=== PATIENT | female | born 1945 | race Caucasian/White ===

== ENCOUNTER → 2018-06-18 | Outpatient (CLI) | payer MEDICARE ==
[~2018-06-18] MED LIST: IOHEXOL-350 75 ML VIAL IV ONE
== END | disposition home or self-care (01) ==
LOC: RAH 07:35
PROVIDERS: ATTEND Internal Medicine Cardiovascular Disease
DX: I65.23 Occlusion and stenosis of bilateral carotid arteries (principal); I70.90 Unspecified atherosclerosis; I73.9 Peripheral vascular disease, unspecified
CPT/HCPCS: 70496; 70498; Q9967

== ENCOUNTER → 2018-06-20 | Outpatient (CLI) | payer MEDICARE | END | disposition home or self-care (01) | LOC: SHCH 11:19 | PROVIDERS: ATTEND Internal Medicine Cardiovascular Disease | DX: I51.7 Cardiomegaly (principal) | CPT/HCPCS: 93306 ==

== ENCOUNTER → 2018-07-02 | Outpatient (CLI) | payer MEDICARE | END | disposition home or self-care (01) | LOC: SHCH 08:40 | PROVIDERS: ATTEND Internal Medicine Cardiovascular Disease | DX: I70.90 Unspecified atherosclerosis (principal); I73.9 Peripheral vascular disease, unspecified | CPT/HCPCS: 93925; 93978 ==

== ENCOUNTER → 2018-08-12 | Outpatient (CLI) | payer MEDICARE ==
[~2018-08-12] MED LIST changes: +IOHEXOL-350 50ML VIAL IV ONE
== END | disposition home or self-care (01) ==
LOC: RAH 07:36
PROVIDERS: ATTEND Internal Medicine Cardiovascular Disease
DX: I70.203 Unspecified atherosclerosis of native arteries of extremities, bilateral legs (principal); K57.30 Diverticulosis of large intestine without perforation or abscess without bleeding; N28.1 Cyst of kidney, acquired; N32.89 Other specified disorders of bladder
CPT/HCPCS: 75635; Q9967 ×2

== ENCOUNTER → 2018-12-10 | Outpatient (CLI) | payer MEDICARE ==
[~2018-12-10] MED LIST changes: +ASPI-1181 PO; +ATOR10 PO; +CALC1CAP19 PO; -IOHEXOL-350 50ML VIAL IV ONE; -IOHEXOL-350 75 ML VIAL IV ONE; +LOSA1TAB37 PO; +METF-444 PO; +METO-391 PO; +MONT10TA24 PO; +ROSU20TA31 PO; +SERT100T12 PO; +SERT50TA12 PO
== END | disposition home or self-care (01) ==
LOC: SHCH 11:23
PROVIDERS: ATTEND Internal Medicine Cardiovascular Disease
DX: I65.23 Occlusion and stenosis of bilateral carotid arteries (principal)
CPT/HCPCS: 93880

== ENCOUNTER → 2019-02-23 | Outpatient (CLI) | payer MEDICARE ==
[~2019-02-23] MED LIST changes: +IOHEXOL-350 75 ML VIAL IV ONE
== END | disposition home or self-care (01) ==
LOC: RAH 07:53
PROVIDERS: ATTEND Internal Medicine Cardiovascular Disease
DX: I65.23 Occlusion and stenosis of bilateral carotid arteries (principal); E78.5 Hyperlipidemia, unspecified
CPT/HCPCS: 70498; Q9967

== ENCOUNTER → 2020-11-01 | Outpatient (CLI) | payer MEDICARE ==
[~2020-11-01] MED LIST changes: -ASPI-1181 PO; +ASPI-1443 PO; +IOHEXOL 350 MG/ML 100ML INFUS..BTL IV ONE; +IOHEXOL-350 50ML VIAL IV ONE; -IOHEXOL-350 75 ML VIAL IV ONE; -MONT10TA24 PO; +MONT10TA32 PO; +SERT-439 PO; +SERT-440 PO; -SERT100T12 PO; -SERT50TA12 PO
== END | disposition home or self-care (01) ==
LOC: RAH 07:45
PROVIDERS: ATTEND Internal Medicine Cardiovascular Disease
DX: N28.1 Cyst of kidney, acquired (principal); K80.20 Calculus of gallbladder without cholecystitis without obstruction; K57.30 Diverticulosis of large intestine without perforation or abscess without bleeding; I70.0 Atherosclerosis of aorta; I70.293 Other atherosclerosis of native arteries of extremities, bilateral legs
CPT/HCPCS: 75635; Q9967 ×2

== ENCOUNTER → 2020-11-30 | Outpatient (CLI) | payer MEDICARE ==
[~2020-11-30] MED LIST changes: -IOHEXOL 350 MG/ML 100ML INFUS..BTL IV ONE; -IOHEXOL-350 50ML VIAL IV ONE
== END | disposition home or self-care (01) ==
LOC: SHCH 15:36
PROVIDERS: ATTEND Internal Medicine Cardiovascular Disease
DX: I65.23 Occlusion and stenosis of bilateral carotid arteries (principal)
CPT/HCPCS: 93880

== ENCOUNTER 2021-02-06 08:00 | Inpatient (IN) | payer MEDICARE ==
[~2021-02-06] VITALS: Ht 162.6 cm; Wt 94.3 kg
[2021-03-07 14:18] LABS: BASOPHILS % (AUTO) 0.6 % (0.0-5.0); EOSINOPHILS % (AUTO) 2.5 % (0.0-8.0); HEMATOCRIT 32.2 % (36-48); LYMPHOCYTES % (AUTO) 17.9 % (21.0-51.0); MEAN CORPUSCULAR HEMOGLOBIN 24.1 pg (27.0-33.0); MEAN CORPUSCULAR HGB CONC 29.5 g/dL (32.0-36.0); MEAN CORPUSCULAR VOLUME 81.5 fL (79-99); MONOCYTES % (AUTO) 9.2 % (3.0-13.0); NEUTROPHILS % (AUTO) 69.3 % (40.0-77.0); PLATELET COUNT (AUTO) 259 K/uL (130-400); RED BLOOD CELL COUNT(AUTO) 3.95 MIL/uL (4.00-5.50); RED CELL DISTRIBUTION WIDTH 18.6 % (11.0-15.5); WHITE BLOOD COUNT (AUTO) 8.1 K/uL (4.8-10.8)
[2021-03-07 14:20] LABS: APPEARANCE,URINE Cloudy (CLEAR); BILIRUBIN,URINE Negative (NEGATIVE); COLOR,URINE Yellow (YELLOW); GLUCOSE, URINE (UA) >=1000 mg/dL (NEGATIVE); KETONES,URINE Negative (NEGATIVE); LEUKOCYTE ESTERASE ,URINE Large (NEGATIVE); NITRATE,URINE Negative (NEGATIVE); OCCULT BLOOD,URINE Negative (NEGATIVE); PROTEIN,URINE Negative (NEGATIVE); UROBILINOGEN,URINE 0.2 mg/dL (0.2-1.0)
[2021-03-07 14:30] LABS: CREATININE 1.1 mg/dL (0.5-1.5)
[2021-03-07 14:33] LABS: INR 0.99 (0.85-1.15); PROTHROMBIN TIME 10.8 SEC (9.6-11.6)
[2021-03-07 14:34] LABS: PARTIAL THROMBOPLASTIN TIME 28.7 SEC (26.3-35.5)
[2021-03-07 14:58] VITALS: BP 175/75
[2021-03-07 15:17] LABS: RBC,URINE 0-1 /HPF (0-1)
[2021-03-07 15:18] LABS: BACTERIA,URINE Few /HPF (None Seen); SQUAMOUS EPITHELIAL CELL,UR Moderate /HPF (0-2); TRANSITIONAL EPI CELLS,URINE Few /HPF (None Seen)
[2021-03-08] MEDS ORDERED: EZET10TA48 PO (08:52)
[2021-03-08] MEDS ORDERED: METF-446 PO (08:52)
[2021-03-08] MEDS ORDERED: LOSA1TAB42 PO (08:52)
[2021-03-08] MEDS ORDERED: EMPA10TA PO (08:52)
[2021-03-08] MEDS ORDERED: CLOP75TA14 PO (08:52)
[2021-03-08] MEDS ORDERED: FOLI0.8T3 PO (08:52)
[2021-03-08] MEDS ORDERED: ROSU40TA21 PO (08:52)
[2021-03-08] MEDS ORDERED: VITAMIN D2 PO (08:52)
[2021-03-08] MEDS ORDERED: PANT40TA54 PO (08:52)
[2021-03-08] MEDS ORDERED: METO-409 PO (08:52)
[2021-03-08] MEDS ORDERED: ACET-2247 PO (09:11)
[2021-03-08] MEDS ORDERED: AEC81 PO (09:11)
[2021-03-08] MEDS ORDERED: 0.9%NACL 1000ML 1,000 ML IV SCH (09:30)
[2021-03-09] VITALS (28 sets, daily range): BP systolic 81–168; BP diastolic 41–105
[2021-03-09] MEDS ORDERED: IOHEXOL 350 MG/ML 100ML INFUS..BTL IV ONE (06:58)
[2021-03-09] MEDS ORDERED: NITROGLYCERIN 50MG VIAL IV ONE (06:58)
[2021-03-09] MEDS ORDERED: ATROPINE 1MG SYG IVP ONE (06:58)
[2021-03-09] MEDS ORDERED: LIDOCAINE PF 100MG/5ML (2%) SYRINGE 5ML ONE (07:02)
[2021-03-09] MEDS ORDERED: ONDANSETRON 4MG INJ ONE (07:02)
[2021-03-09] MEDS ORDERED: SUCCINYLCHOLINE 200MG/10ML SYR ONE (07:02)
[2021-03-09] MEDS ORDERED: DEXAMETHASONE SOD PHOSPHATE 10MG/ML 1ML VIAL ONE (07:02)
[2021-03-09] MEDS ORDERED: NEOSTIGMINE 5MG/5ML SYR IV ONE (07:02)
[2021-03-09] MEDS ORDERED: GLYCOPYRROLATE 1 MG/5 ML SYRINGE ONE (07:02)
[2021-03-09] MEDS ORDERED: MIDAZOLAM HCL 1 MG/ML 2ML VIAL ONE (07:02)
[2021-03-09] MEDS ORDERED: PROPOFOL 10 MG/ML 20ML VIAL IV ONE (07:02)
[2021-03-09] MEDS ORDERED: ROCURONIUM 10MG/1ML SYR 10 MG/ML ML ONE (07:02)
[2021-03-09] MEDS ORDERED: FENTANYL CITRATE PF 50 MCG/1 ML 2ML VIAL ONE ×2 (07:03→09:10)
[2021-03-09] MEDS ORDERED: CEFAZOLIN SODIUM 1 GM VIAL ONE ×2 (07:10→07:50)
[2021-03-09] MEDS ORDERED: ASPIRIN 325MG EC TAB PO ONE (07:21)
[2021-03-09] MEDS ORDERED: CLOPIDOGREL 300MG TAB ONE (07:22)
[2021-03-09] MEDS ORDERED: FAMOTIDINE 20MG VIAL IV ONE (07:22)
[2021-03-09] MEDS ORDERED: PHENYLEPHRINE HCL 10 MG/ML 1ML VIAL IV ONE (07:38)
[2021-03-09] MEDS ORDERED: EPINEPHRINE PF 1MG AMP ONE (07:45)
[2021-03-09] MEDS ORDERED: HEPARIN 10,000 UNIT/10ML (1,000 UNIT/ML) VIAL ONE (08:06)
[2021-03-09] MEDS ORDERED: ERGOCALCIFEROL (VITAMIN D2) 50,000 UNIT CAPSULE PO SCH (09:00)
[2021-03-09] MEDS: PANTOPRAZOLE 40 MG TAB DR PO SCH (09:00)
[2021-03-09] MEDS ORDERED: LIDOCAINE HCL MPF 1% 5ML VIAL ONE (09:10)
[2021-03-09] MEDS ORDERED: DEXTROSE 50%-WATER 50 ML DISP.SYRIN IV PRN (09:30)
[2021-03-09] MEDS ORDERED: PHARMACY COMMUNICATION MISC SCH (09:30)
[2021-03-09] MEDS ORDERED: NOREPINEPHRIN 4MG/NS 250ML 250 ML IV PRN (09:30)
[2021-03-09] MEDS ORDERED: NITROGLYCERIN 50MG/D5W 250ML 1 BOT IV PRN (09:30)
[2021-03-09] MEDS ORDERED: 0.9%NACL 1000ML 1,000 ML IV SCH (09:30)
[2021-03-09] MEDS: INSULIN HUMULIN R 100 UNIT/ML 3ML SQ SCH ×3 (11:30→21:00)
[2021-03-09] MEDS ORDERED: CEFAZOLIN SODIUM 1 GM VIAL IVP SCH (14:00)
[2021-03-09] MEDS ORDERED: ONDANSETRON 4MG INJ IVP PRN (15:00)
[2021-03-09] MEDS ORDERED: ACETAMINOPHEN 325 MG TAB PO PRN (15:00)
[2021-03-09] MEDS ORDERED: MORPHINE 2 MG SYG IVP PRN (15:30)
[2021-03-09] MEDS ORDERED: EZETIMIBE 10 MG TAB PO SCH (21:00)
[2021-03-09] MEDS ORDERED: ASPIRIN 81 MG EC TAB PO SCH (21:00)
[2021-03-09] MEDS ORDERED: ACETAMINOPHEN 325 MG TAB PO SCH (21:00)
[2021-03-09] MEDS ORDERED: LOSARTAN 100 MG TABLET PO SCH (21:00)
[2021-03-09] MEDS ORDERED: HYDROCHLOROTHIAZIDE 25 MG TABLET PO SCH (21:00)
[2021-03-09] MEDS ORDERED: ATORVASTATIN 40 MG TABLET PO SCH (21:00)
[2021-03-09] MEDS ORDERED: FOLIC ACID 1 MG TABLET PO SCH (21:00)
[2021-03-09] MEDS ORDERED: **HM**JARDIANCE 10MG PO SCH (21:00)
[2021-03-09] MEDS ORDERED: METOPROLOL SUCCINATE 50 MG TAB.SR.24H PO SCH (21:00)
[2021-03-09] MEDS ORDERED: CLOPIDOGREL 75MG TAB PO SCH (21:00)
[2021-03-10] VITALS (13 sets, daily range): BP systolic 128–188; BP diastolic 39–88
[2021-03-10 05:38] LABS: BASOPHILS % (AUTO) 0.1 % (0.0-5.0); HEMATOCRIT 25.3 % (36-48); LYMPHOCYTES % (AUTO) 9.5 % (21.0-51.0); MEAN CORPUSCULAR HEMOGLOBIN 24.2 pg (27.0-33.0); MEAN CORPUSCULAR VOLUME 80.6 fL (79-99); MONOCYTES % (AUTO) 10.5 % (3.0-13.0); NEUTROPHILS % (AUTO) 79.4 % (40.0-77.0); PLATELET COUNT (AUTO) 225 K/uL (130-400); RED BLOOD CELL COUNT(AUTO) 3.14 MIL/uL (4.00-5.50); RED CELL DISTRIBUTION WIDTH 18.9 % (11.0-15.5); WHITE BLOOD COUNT (AUTO) 9.8 K/uL (4.8-10.8)
[2021-03-10 06:00] LABS: ALBUMIN 3.2 g/dL (3.5-5.0); BILIRUBIN,TOTAL 0.1 mg/dL (0.2-1.0); CREATININE 1.1 mg/dL (0.5-1.5); POTASSIUM 3.8 mmol/L (3.5-5.1); TOTAL PROTEIN, SERUM 6.8 g/dL (6.0-8.3)
[2021-03-10] MEDS: INSULIN HUMULIN R 100 UNIT/ML 3ML SQ SCH ×3 (06:53→16:30)
[2021-03-10] MEDS ORDERED: FERROUS SULFATE 325 MG TABLET.DR ONE (08:16)
[2021-03-10] MEDS: PANTOPRAZOLE 40 MG TAB DR PO SCH (08:55)
[2021-03-10] MEDS: FERROUS SULFATE 325 MG TABLET.DR PO SCH ×3 (08:56→17:00)
[2021-03-10 17:06] LABS: HEMATOCRIT 32.8 % (36-48)
[2021-03-10] MEDS ORDERED: FERR324T4 PO (17:41)
== END 2021-03-10 18:56 | disposition home or self-care (01) | DRG 27 ==
LOC: DAHIP 03-09 05:38 → 2CH 03-09 09:47 → EDSTATUS 03-09 12:00 → 2DH 03-10 12:43
PROVIDERS: ADMIT Hospitalist; ATTEND Hospitalist
PROC: 03CK3ZZ Extirpation of Matter from Right Internal Carotid Artery, Percutaneous Approach (ICD-10-PCS; 2021-03-09)
PROC: B3131ZZ Fluoroscopy of Right Common Carotid Artery using Low Osmolar Contrast (ICD-10-PCS; 2021-03-09)
PROC: 037H3DZ Dilation of Right Common Carotid Artery with Intraluminal Device, Percutaneous Approach (ICD-10-PCS; principal; 2021-03-09 07:00)
PROC: 30233N1 Transfusion of Nonautologous Red Blood Cells into Peripheral Vein, Percutaneous Approach (ICD-10-PCS; 2021-03-10)
DX: I65.21 Occlusion and stenosis of right carotid artery (principal); Z68.35 Body mass index [BMI] 35.0-35.9, adult; E66.9 Obesity, unspecified; E78.5 Hyperlipidemia, unspecified; E11.51 Type 2 diabetes mellitus with diabetic peripheral angiopathy without gangrene; D64.9 Anemia, unspecified; I10 Essential (primary) hypertension; Z20.822 Contact with and (suspected) exposure to COVID-19; F41.9 Anxiety disorder, unspecified; E78.00 Pure hypercholesterolemia, unspecified; Z90.710 Acquired absence of both cervix and uterus; Z79.82 Long term (current) use of aspirin; Z79.02 Long term (current) use of antithrombotics/antiplatelets; Z79.899 Other long term (current) drug therapy; Z87.891 Personal history of nicotine dependence; Z82.3 Family history of stroke; Z82.5 Family history of asthma and other chronic lower respiratory diseases; Z82.0 Family history of epilepsy and other diseases of the nervous system; Z82.49 Family history of ischemic heart disease and other diseases of the circulatory system; Z80.6 Family history of leukemia; Z80.8 Family history of malignant neoplasm of other organs or systems
CPT/HCPCS: 36415; 36430; 37215; 71045; 80048; 80053; 80061; 81001; 82948; 85014; 85018; 85025; 85347; 85610; 85730; 86850; 86900; 86901; 86923; 87088; 87635; 93005; A4344; A4606; C1725; C1769; C1894; G0378; J0171; J0330; J0461; J0690; J1100; J1644; J2001; J2250; J2370; J2405; J2704; J2710; J3010; J3490; J7040; P9016; Q9967

== ENCOUNTER → 2021-04-06 | Outpatient (CLI) | payer MEDICARE ==
[~2021-04-06] MED LIST changes: +ACET-2247 PO; +AEC81 PO; -ASPI-1443 PO; -ATOR10 PO; -CALC1CAP19 PO; +CLOP75TA14 PO; +EMPA10TA PO; +EZET10TA48 PO; +FERR324T4 PO; +FOLI0.8T3 PO; +GADOTERATE MEGLUMINE 10 MMOL/20 ML VIAL IV ONE; -LOSA1TAB37 PO; +LOSA1TAB42 PO; -METF-444 PO; +METF-446 PO; -METO-391 PO; +METO-409 PO; -MONT10TA32 PO; +PANT40TA54 PO; -ROSU20TA31 PO; +ROSU40TA21 PO; -SERT-439 PO; -SERT-440 PO; +VITAMIN D2 PO
== END | disposition home or self-care (01) ==
LOC: RAH 08:20
PROVIDERS: ATTEND Internal Medicine Cardiovascular Disease
DX: M47.816 Spondylosis without myelopathy or radiculopathy, lumbar region (principal); M48.061 Spinal stenosis, lumbar region without neurogenic claudication; M51.26 Other intervertebral disc displacement, lumbar region; N28.1 Cyst of kidney, acquired
CPT/HCPCS: 72158; A9575

== ENCOUNTER → 2021-05-10 | Outpatient (CLI) | payer MEDICARE ==
[~2021-05-10] MED LIST changes: +ALBUTEROL 0.083% 2.5 MG/3 ML INH IH ONE; -GADOTERATE MEGLUMINE 10 MMOL/20 ML VIAL IV ONE
== END | disposition home or self-care (01) ==
LOC: RESP 08:44
PROVIDERS: ATTEND Internal Medicine Critical Care Medicine
DX: J44.9 Chronic obstructive pulmonary disease, unspecified (principal)
CPT/HCPCS: 94060; 94727; 94729

== ENCOUNTER 2021-07-20 17:55 | Inpatient (IN) | payer MEDICARE ==
[~2021-07-20] VITALS: Ht 162.6 cm; Wt 86.0 kg
[~2021-07-20 17:55] MED LIST changes: -AEC81 PO; -ALBUTEROL 0.083% 2.5 MG/3 ML INH IH ONE; +DIAZ2TAB3 PO; +DULO60CA64 PO; +FERR1TAB66 PO; +FOLI0.8C PO; -FOLI0.8T3 PO; -LOSA1TAB42 PO; +METF-444 PO; -METF-446 PO; -METO-409 PO; +MONT-39 PO; +PIND5 PO
[2021-07-20 18:24] LABS: BASOPHILS % (AUTO) 0.2 % (0.0-5.0); EOSINOPHILS % (AUTO) 0.2 % (0.0-8.0); MEAN CORPUSCULAR HEMOGLOBIN 26.8 pg (27.0-33.0); MEAN CORPUSCULAR HGB CONC 29.8 g/dL (32.0-36.0); MEAN CORPUSCULAR VOLUME 89.8 fL (79-99); MONOCYTES % (AUTO) 7.1 % (3.0-13.0); NEUTROPHILS % (AUTO) 78.4 % (40.0-77.0); PLATELET COUNT (AUTO) 304 K/uL (130-400); RED BLOOD CELL COUNT(AUTO) 1.57 MIL/uL (4.00-5.50); RED CELL DISTRIBUTION WIDTH 16.2 % (11.0-15.5); WHITE BLOOD COUNT (AUTO) 12.3 K/uL (4.8-10.8)
[2021-07-20 18:37] LABS: CREATININE 0.8 mg/dL (0.5-1.5); POTASSIUM 3.3 mmol/L (3.5-5.1)
[2021-07-20 18:38] LABS: HEMATOCRIT 14.1 % (36-48)
[2021-07-20 18:46] LABS: ALBUMIN 2.5 g/dL (3.5-5.0); BILIRUBIN,TOTAL 0.2 mg/dL (0.2-1.0); TOTAL PROTEIN, SERUM 5.6 g/dL (6.0-8.3)
[2021-07-20] MEDS ORDERED: 0.9%NACL 1000ML 1,000 ML IV SCH ×2 (19:00→19:30)
[2021-07-20 19:16] LABS: INR 1.04 (0.85-1.15); PROTHROMBIN TIME 11.3 SEC (9.6-11.6)
[2021-07-20 19:17] LABS: PARTIAL THROMBOPLASTIN TIME 26.2 SEC (26.3-35.5)
[2021-07-20] MEDS ORDERED: POTASSIUM BICARB/CIT AC 25 MEQ TABLET.EFF PO ONE (19:30)
[2021-07-20] MEDS ORDERED: ONDANSETRON 4MG INJ IV PRN (19:30)
[2021-07-20] MEDS ORDERED: ACETAMINOPHEN 325 MG TAB PO PRN ×2 (19:30)
[2021-07-20 20:22] LABS: HEMOGLOBIN A1C 5.6 % (4.0-6.0)
[2021-07-20] MEDS: FAMOTIDINE 20MG TAB PO SCH (20:49)
[2021-07-20] MEDS: INSULIN HUMULIN R 100 UNIT/ML 3ML SQ SCH (21:00)
[2021-07-20 21:26] VITALS: BP 152/52
[2021-07-21] VITALS (7 sets, daily range): BP systolic 130–188; BP diastolic 48–78
[2021-07-21 02:17] LABS: BASOPHILS % (AUTO) 0.5 % (0.0-5.0); EOSINOPHILS % (AUTO) 0.2 % (0.0-8.0); LYMPHOCYTES % (AUTO) 19.5 % (21.0-51.0); MEAN CORPUSCULAR HEMOGLOBIN 27.6 pg (27.0-33.0); MEAN CORPUSCULAR HGB CONC 31.3 g/dL (32.0-36.0); MEAN CORPUSCULAR VOLUME 88.2 fL (79-99); MONOCYTES % (AUTO) 11.2 % (3.0-13.0); NEUTROPHILS % (AUTO) 67.3 % (40.0-77.0); NUCLEATED RED BLOOD CELLS 0.2 % (0.0-0.19); PLATELET COUNT (AUTO) 238 K/uL (130-400); RED BLOOD CELL COUNT(AUTO) 2.21 MIL/uL (4.00-5.50); RED CELL DISTRIBUTION WIDTH 15.4 % (11.0-15.5); WHITE BLOOD COUNT (AUTO) 9.5 K/uL (4.8-10.8)
[2021-07-21 02:21] LABS: HEMATOCRIT 19.5 % (36-48)
[2021-07-21 02:30] LABS: ALBUMIN 2.4 g/dL (3.5-5.0); BILIRUBIN,TOTAL 0.2 mg/dL (0.2-1.0); CREATININE 0.7 mg/dL (0.5-1.5); POTASSIUM 3.2 mmol/L (3.5-5.1); TOTAL PROTEIN, SERUM 5.1 g/dL (6.0-8.3)
[2021-07-21 03:27] LABS: ERYTHROCYTE SEDIMENTATION RATE 22 MM/HR (0-30)
[2021-07-21 03:49] LABS: APPEARANCE,URINE Clear (CLEAR); BILIRUBIN,URINE Negative (NEGATIVE); COLOR,URINE Yellow (YELLOW); GLUCOSE, URINE (UA) Negative (NEGATIVE); KETONES,URINE Trace mg/dL (NEGATIVE); LEUKOCYTE ESTERASE ,URINE Small (NEGATIVE); NITRATE,URINE Negative (NEGATIVE); OCCULT BLOOD,URINE Negative (NEGATIVE); PROTEIN,URINE Negative (NEGATIVE); UROBILINOGEN,URINE 0.2 mg/dL (0.2-1.0)
[2021-07-21 04:01] LABS: BACTERIA,URINE None Seen /HPF (None Seen); RBC,URINE 0-1 /HPF (0-1); SQUAMOUS EPITHELIAL CELL,UR Few /HPF (0-2)
[2021-07-21 05:03] LABS: HEPATITIS A IGM ANTIBODY Non-Reactive (Negative); HEPATITIS B CORE IGM ANTIBODY Non-Reactive (Negative); HEPATITIS C ANTIBODY Non-Reactive (NEGATIVE)
[2021-07-21 05:04] LABS: HEPATITIS B SURFACE ANTIGEN Non-Reactive (Negative)
[2021-07-21 06:49] LABS: HEMATOCRIT 18.9 % (36-48)
[2021-07-21] MEDS: INSULIN HUMULIN R 100 UNIT/ML 3ML SQ SCH ×4 (06:52→20:50)
[2021-07-21] MEDS: CEFTRIAXONE 1G VIAL IVP SCH ×2 (07:16→18:29)
[2021-07-21] MEDS: FAMOTIDINE 20MG TAB PO SCH ×2 (08:11→21:30)
[2021-07-21] MEDS ORDERED: FOLI0.8T3 PO (11:13)
[2021-07-21] MEDS ORDERED: FERR159T2 PO (11:13)
[2021-07-21 12:04] LABS: HEMATOCRIT 19.3 % (36-48)
[2021-07-21] MEDS: KCL 20 MEQ ERTAB PO PRN (12:24)
[2021-07-21] MEDS ORDERED: IOHEXOL-350 75 ML VIAL IV ONE (17:31)
[2021-07-21 19:25] LABS: HEMATOCRIT 23.7 % (36-48)
[2021-07-21] MEDS ORDERED: LACTULOSE 20 GM/30 ML UDCUP PO SCH (21:00)
[2021-07-22] VITALS (18 sets, daily range): BP systolic 123–191; BP diastolic 60–85
[2021-07-22 04:00] LABS: BASOPHILS % (AUTO) 0.5 % (0.0-5.0); HEMATOCRIT 23.9 % (36-48); MEAN CORPUSCULAR HEMOGLOBIN 27.4 pg (27.0-33.0); MEAN CORPUSCULAR HGB CONC 31.4 g/dL (32.0-36.0); MEAN CORPUSCULAR VOLUME 87.2 fL (79-99); MONOCYTES % (AUTO) 9.7 % (3.0-13.0); NEUTROPHILS % (AUTO) 69.7 % (40.0-77.0); PLATELET COUNT (AUTO) 260 K/uL (130-400); RED BLOOD CELL COUNT(AUTO) 2.74 MIL/uL (4.00-5.50); RED CELL DISTRIBUTION WIDTH 15.9 % (11.0-15.5); WHITE BLOOD COUNT (AUTO) 7.6 K/uL (4.8-10.8)
[2021-07-22 04:22] LABS: CREATININE 0.7 mg/dL (0.5-1.5); MAGNESIUM 1.8 mg/dL (1.80-2.40); PHOSPHORUS 3.4 mg/dL (2.5-4.9); POTASSIUM 3.1 mmol/L (3.5-5.1)
[2021-07-22] MEDS: INSULIN HUMULIN R 100 UNIT/ML 3ML SQ SCH ×4 (06:38→20:50)
[2021-07-22] MEDS: CEFTRIAXONE 1G VIAL IVP SCH ×2 (06:38→18:12)
[2021-07-22] MEDS: LIDOCAINE HCL-MPF 1% 2ML VIAL IV PRN (06:38)
[2021-07-22] MEDS: POTASSIUM CHLORIDE 20MEQ/100ML 100 ML IV PRN (06:39)
[2021-07-22] MEDS: FAMOTIDINE 20MG TAB PO SCH (08:49)
[2021-07-22] MEDS: LABETALOL 20MG VIAL IV PRN ×3 (08:54→22:17)
[2021-07-22] MEDS ORDERED: IRON SUCROSE COMPLEX 100 MG in 0.9%NACL 50ML 50 ML IV SCH (09:00)
[2021-07-22] MEDS: IRON SUCROSE COMPLEX 100 MG/5 ML VIAL IVP SCH (09:06)
[2021-07-22] MEDS ORDERED: LIDOCAINE PF 100MG/5ML (2%) SYRINGE 5ML ONE (14:03)
[2021-07-22] MEDS ORDERED: PROPOFOL 10 MG/ML 20ML VIAL IV ONE (14:03)
[2021-07-22] MEDS ORDERED: LACTULOSE 20 GM/30 ML UDCUP PR SCH (15:00)
[2021-07-22] MEDS: KCL 20 MEQ ERTAB PO PRN (15:59)
[2021-07-22] MEDS ORDERED: LACTULOSE 20 GM/30 ML UDCUP PO SCH (16:00)
[2021-07-22] MEDS ORDERED: LACTULOSE 20 GM/30 ML UDCUP PO ONE (16:30)
[2021-07-22] MEDS ORDERED: MAGNESIUM CITRATE 296 ML SOLUTION PO ONE (17:00)
[2021-07-22] MEDS ORDERED: PEG 3350/NA SULF,BICARB,CL/KCL 4000 ML SOLN PO SCH (17:30)
[2021-07-22] MEDS ORDERED: MAGNESIUM 2GM PREMIX 50ML 50 ML IV SCH (18:00)
[2021-07-22] MEDS ORDERED: HYDROMORPHONE 0.5 MG SYG (0.5MG/0.5ML) IVP PRN ×2 (18:30)
[2021-07-22] MEDS: BISACODYL 5 MG TABLET.DR PO SCH (20:35)
[2021-07-22] MEDS: PANTOPRAZOLE 40 MG/VIAL IVP SCH (20:35)
[2021-07-23] VITALS (10 sets, daily range): BP systolic 105–177; BP diastolic 32–91
[2021-07-23 05:14] LABS: BASOPHILS % (AUTO) 0.4 % (0.0-5.0); EOSINOPHILS % (AUTO) 1.2 % (0.0-8.0); HEMATOCRIT 30.5 % (36-48); LYMPHOCYTES % (AUTO) 15.2 % (21.0-51.0); MEAN CORPUSCULAR HEMOGLOBIN 27.7 pg (27.0-33.0); MEAN CORPUSCULAR HGB CONC 31.5 g/dL (32.0-36.0); MEAN CORPUSCULAR VOLUME 88.2 fL (79-99); MONOCYTES % (AUTO) 9.3 % (3.0-13.0); NEUTROPHILS % (AUTO) 73.1 % (40.0-77.0); PLATELET COUNT (AUTO) 304 K/uL (130-400); RED BLOOD CELL COUNT(AUTO) 3.46 MIL/uL (4.00-5.50); RED CELL DISTRIBUTION WIDTH 15.9 % (11.0-15.5); WHITE BLOOD COUNT (AUTO) 8.5 K/uL (4.8-10.8)
[2021-07-23 05:24] LABS: CREATININE 0.7 mg/dL (0.5-1.5); MAGNESIUM 2.2 mg/dL (1.80-2.40)
[2021-07-23 05:33] LABS: POTASSIUM 2.7 mmol/L (3.5-5.1)
[2021-07-23] MEDS: INSULIN HUMULIN R 100 UNIT/ML 3ML SQ SCH ×4 (05:36→20:44)
[2021-07-23] MEDS: LABETALOL 20MG VIAL IV PRN ×2 (05:36→20:56)
[2021-07-23] MEDS: CEFTRIAXONE 1G VIAL IVP SCH ×2 (05:37→19:19)
[2021-07-23] MEDS: LIDOCAINE HCL-MPF 1% 2ML VIAL IV PRN (07:14)
[2021-07-23] MEDS: POTASSIUM CHLORIDE 20MEQ/100ML 100 ML IV PRN (07:14)
[2021-07-23] MEDS: PANTOPRAZOLE 40 MG/VIAL IVP SCH ×2 (09:01→20:46)
[2021-07-23] MEDS: IRON SUCROSE COMPLEX 100 MG/5 ML VIAL IVP SCH (09:01)
[2021-07-23] MEDS: BISACODYL 5 MG TABLET.DR PO SCH ×2 (09:02→20:46)
[2021-07-23] MEDS ORDERED: PROPOFOL 10 MG/ML 20ML VIAL IV ONE (11:10)
[2021-07-23] MEDS ORDERED: LIDOCAINE PF 100MG/5ML (2%) SYRINGE 5ML ONE (11:11)
[2021-07-23] MEDS ORDERED: PEG 3350/NA SULF,BICARB,CL/KCL 4000 ML SOLN PO SCH (16:00)
[2021-07-23] MEDS ORDERED: MAGNESIUM CITRATE 296 ML SOLUTION PO SCH (16:00)
[2021-07-23] MEDS ORDERED: LACTULOSE 20 GM/30 ML UDCUP PR SCH (16:00)
[2021-07-23] MEDS: KCL 20 MEQ ERTAB PO PRN (16:39)
[2021-07-24] VITALS (19 sets, daily range): BP systolic 122–199; BP diastolic 53–89
[2021-07-24 05:01] LABS: BASOPHILS % (AUTO) 0.4 % (0.0-5.0); HEMATOCRIT 26.8 % (36-48); LYMPHOCYTES % (AUTO) 18.3 % (21.0-51.0); MEAN CORPUSCULAR HEMOGLOBIN 27.5 pg (27.0-33.0); MEAN CORPUSCULAR HGB CONC 31.3 g/dL (32.0-36.0); MEAN CORPUSCULAR VOLUME 87.6 fL (79-99); MONOCYTES % (AUTO) 12.4 % (3.0-13.0); NEUTROPHILS % (AUTO) 66.2 % (40.0-77.0); PLATELET COUNT (AUTO) 272 K/uL (130-400); RED BLOOD CELL COUNT(AUTO) 3.06 MIL/uL (4.00-5.50); RED CELL DISTRIBUTION WIDTH 15.9 % (11.0-15.5)
[2021-07-24 05:14] LABS: CREATININE 0.5 mg/dL (0.5-1.5)
[2021-07-24 05:20] LABS: POTASSIUM 2.8 mmol/L (3.5-5.1)
[2021-07-24] MEDS ORDERED: KCL 20 MEQ ERTAB PO ONE ×2 (06:00)
[2021-07-24] MEDS: KCL 20 MEQ ERTAB PO PRN ×2 (06:03→22:48)
[2021-07-24] MEDS: INSULIN HUMULIN R 100 UNIT/ML 3ML SQ SCH ×4 (06:08→20:13)
[2021-07-24] MEDS: BISACODYL 5 MG TABLET.DR PO SCH ×3 (08:35→20:31)
[2021-07-24] MEDS: CEFTRIAXONE 1G VIAL IVP SCH ×2 (08:58→18:47)
[2021-07-24] MEDS: PANTOPRAZOLE 40 MG/VIAL IVP SCH ×2 (08:58→20:27)
[2021-07-24] MEDS: IRON SUCROSE COMPLEX 100 MG/5 ML VIAL IVP SCH (08:59)
[2021-07-24] MEDS: LIDOCAINE HCL-MPF 1% 2ML VIAL IV PRN (10:53)
[2021-07-24] MEDS: POTASSIUM CHLORIDE 20MEQ/100ML 100 ML IV PRN (10:54)
[2021-07-24] MEDS ORDERED: PROPOFOL 10 MG/ML 20ML VIAL IV ONE ×5 (12:44→14:06)
[2021-07-24] MEDS ORDERED: FENTANYL CITRATE PF 50 MCG/1 ML 2ML VIAL ONE (13:06)
[2021-07-24] MEDS ORDERED: PHENYLEPHRINE HCL 10 MG/ML 1ML VIAL IV ONE (13:31)
[2021-07-25] VITALS (8 sets, daily range): BP systolic 92–199; BP diastolic 51–88
[2021-07-25 05:04] LABS: BASOPHILS % (AUTO) 0.4 % (0.0-5.0); EOSINOPHILS % (AUTO) 1.8 % (0.0-8.0); HEMATOCRIT 28.4 % (36-48); LYMPHOCYTES % (AUTO) 16.1 % (21.0-51.0); MEAN CORPUSCULAR HEMOGLOBIN 28.2 pg (27.0-33.0); MEAN CORPUSCULAR HGB CONC 31.3 g/dL (32.0-36.0); MEAN CORPUSCULAR VOLUME 89.9 fL (79-99); MONOCYTES % (AUTO) 10.8 % (3.0-13.0); NEUTROPHILS % (AUTO) 70.4 % (40.0-77.0); PLATELET COUNT (AUTO) 285 K/uL (130-400); RED BLOOD CELL COUNT(AUTO) 3.16 MIL/uL (4.00-5.50); WHITE BLOOD COUNT (AUTO) 8.2 K/uL (4.8-10.8)
[2021-07-25 05:22] LABS: ALBUMIN 2.5 g/dL (3.5-5.0); BILIRUBIN,TOTAL 0.3 mg/dL (0.2-1.0); CREATININE 0.6 mg/dL (0.5-1.5); TOTAL PROTEIN, SERUM 5.6 g/dL (6.0-8.3)
[2021-07-25 05:25] LABS: POTASSIUM 2.9 mmol/L (3.5-5.1)
[2021-07-25] MEDS: POTASSIUM CHLORIDE 20MEQ/100ML 100 ML IV PRN (05:33)
[2021-07-25] MEDS: LIDOCAINE HCL-MPF 1% 2ML VIAL IV PRN (05:34)
[2021-07-25] MEDS: CEFTRIAXONE 1G VIAL IVP SCH ×2 (05:53→19:07)
[2021-07-25] MEDS: INSULIN HUMULIN R 100 UNIT/ML 3ML SQ SCH ×4 (06:27→20:06)
[2021-07-25] MEDS: BISACODYL 5 MG TABLET.DR PO SCH ×2 (09:00→21:00)
[2021-07-25] MEDS: IRON SUCROSE COMPLEX 100 MG/5 ML VIAL IVP SCH (09:45)
[2021-07-25] MEDS: PANTOPRAZOLE 40 MG/VIAL IVP SCH (09:45)
[2021-07-26 04:24] VITALS: BP 154/73
[2021-07-26 04:48] LABS: BASOPHILS % (AUTO) 0.3 % (0.0-5.0); EOSINOPHILS % (AUTO) 3.3 % (0.0-8.0); HEMATOCRIT 28.2 % (36-48); LYMPHOCYTES % (AUTO) 15.7 % (21.0-51.0); MEAN CORPUSCULAR HEMOGLOBIN 27.1 pg (27.0-33.0); MEAN CORPUSCULAR HGB CONC 30.1 g/dL (32.0-36.0); MEAN CORPUSCULAR VOLUME 89.8 fL (79-99); MONOCYTES % (AUTO) 9.3 % (3.0-13.0); NEUTROPHILS % (AUTO) 70.7 % (40.0-77.0); PLATELET COUNT (AUTO) 274 K/uL (130-400); RED BLOOD CELL COUNT(AUTO) 3.14 MIL/uL (4.00-5.50); RED CELL DISTRIBUTION WIDTH 16.1 % (11.0-15.5); WHITE BLOOD COUNT (AUTO) 7.5 K/uL (4.8-10.8)
[2021-07-26 05:34] LABS: ALBUMIN 2.4 g/dL (3.5-5.0); BILIRUBIN,TOTAL 0.3 mg/dL (0.2-1.0); CREATININE 0.6 mg/dL (0.5-1.5); TOTAL PROTEIN, SERUM 5.4 g/dL (6.0-8.3)
[2021-07-26 05:42] LABS: POTASSIUM 2.8 mmol/L (3.5-5.1)
[2021-07-26] MEDS: CEFTRIAXONE 1G VIAL IVP SCH (05:42)
[2021-07-26] MEDS: POTASSIUM CHLORIDE 10% ELIXIR 20 MEQ/15 ML UDCUP PO PRN ×3 (05:50→14:08)
[2021-07-26] MEDS: INSULIN HUMULIN R 100 UNIT/ML 3ML SQ SCH ×3 (05:51→16:30)
[2021-07-26 08:00] VITALS: BP 172/73
[2021-07-26] MEDS ORDERED: PANTOPRAZOLE 40 MG TAB DR PO SCH (09:00)
[2021-07-26] MEDS: BISACODYL 5 MG TABLET.DR PO SCH (09:00)
[2021-07-26] MEDS: IRON SUCROSE COMPLEX 100 MG/5 ML VIAL IVP SCH (09:18)
[2021-07-26] MEDS: KCL 20 MEQ ERTAB PO PRN (09:20)
[2021-07-26] MEDS ORDERED: OMEP20TA20 PO (09:27)
[2021-07-26] MEDS: LIDOCAINE HCL-MPF 1% 2ML VIAL IV PRN (09:32)
[2021-07-26] MEDS: POTASSIUM CHLORIDE 20MEQ/100ML 100 ML IV PRN (09:32)
[2021-07-26 12:00] VITALS: BP_SYST 156; BP_SYST 162; BP_DIAS 65; BP_DIAS 75
[2021-07-26 16:00] VITALS: BP 156/75
== END 2021-07-26 17:45 | disposition home or self-care (01) | DRG 378 ==
LOC: EDH 17:55 → EDHIP 19:06 → UNDOADMOB 19:06 → EDHIP 19:12 → OBSVTOIN 19:12 → 3CH 21:07
PROVIDERS: ADMIT Internal Medicine; ATTEND Internal Medicine
PROC: 30233N1 Transfusion of Nonautologous Red Blood Cells into Peripheral Vein, Percutaneous Approach (ICD-10-PCS; 2021-07-20)
PROC: 30233N1 Transfusion of Nonautologous Red Blood Cells into Peripheral Vein, Percutaneous Approach (ICD-10-PCS; 2021-07-21)
PROC: 0DB58ZX Excision of Esophagus, Via Natural or Artificial Opening Endoscopic, Diagnostic (ICD-10-PCS; principal; 2021-07-22)
PROC: 0DB68ZX Excision of Stomach, Via Natural or Artificial Opening Endoscopic, Diagnostic (ICD-10-PCS; 2021-07-22)
PROC: 0DJD8ZZ Inspection of Lower Intestinal Tract, Via Natural or Artificial Opening Endoscopic (ICD-10-PCS; 2021-07-23)
PROC: 0DBM8ZZ Excision of Descending Colon, Via Natural or Artificial Opening Endoscopic (ICD-10-PCS; 2021-07-24)
PROC: 0DBL8ZZ Excision of Transverse Colon, Via Natural or Artificial Opening Endoscopic (ICD-10-PCS; 2021-07-24)
DX: K29.01 Acute gastritis with bleeding (principal); C18.7 Malignant neoplasm of sigmoid colon; C78.01 Secondary malignant neoplasm of right lung; D62 Acute posthemorrhagic anemia; K21.01 Gastro-esophageal reflux disease with esophagitis, with bleeding; I10 Essential (primary) hypertension; E78.5 Hyperlipidemia, unspecified; E11.9 Type 2 diabetes mellitus without complications; E87.6 Hypokalemia; K64.0 First degree hemorrhoids; K57.30 Diverticulosis of large intestine without perforation or abscess without bleeding; E78.00 Pure hypercholesterolemia, unspecified; I25.10 Atherosclerotic heart disease of native coronary artery without angina pectoris; Z82.49 Family history of ischemic heart disease and other diseases of the circulatory system; Z83.3 Family history of diabetes mellitus; Z87.891 Personal history of nicotine dependence; Z90.710 Acquired absence of both cervix and uterus
CPT/HCPCS: 36415; 36430; 43239; 45378; 45385; 71045; 71260; 74176; 80048; 80053; 80074; 81001; 82270; 82378; 82948; 83036; 83540; 83550; 83605; 83735; 84100; 84132; 84484; 85014; 85018; 85025; 85610; 85651; 85730; 86850; 86900; 86901; 86923; 87088; 87635; 93005; 94760; A4606; C9113; G0378; J0696; J1170; J1756; J1815; J2001; J2370; J2704; J3010; J3480; J3490; J7030; P9016; Q9967

== ENCOUNTER 2021-08-12 14:14 | Inpatient (IN) | payer MEDICARE ==
[~2021-08-12] VITALS: Ht 162.6 cm; Wt 79.7 kg
[~2021-08-12 14:14] MED LIST changes: -DIAZ2TAB3 PO; -EMPA10TA PO; +FERR159T2 PO; -FERR1TAB66 PO; -FERR324T4 PO; -FOLI0.8C PO; +FOLI0.8T3 PO; +OMEP20TA20 PO
[2021-08-12 15:05] LABS: BASOPHILS % (AUTO) 0.5 % (0.0-5.0); EOSINOPHILS % (AUTO) 1.5 % (0.0-8.0); HEMATOCRIT 21.2 % (36-48); LYMPHOCYTES % (AUTO) 12.7 % (21.0-51.0); MEAN CORPUSCULAR HEMOGLOBIN 27.1 pg (27.0-33.0); MEAN CORPUSCULAR HGB CONC 30.7 g/dL (32.0-36.0); MEAN CORPUSCULAR VOLUME 88.3 fL (79-99); MONOCYTES % (AUTO) 8.1 % (3.0-13.0); NEUTROPHILS % (AUTO) 76.3 % (40.0-77.0); PLATELET COUNT (AUTO) 356 K/uL (130-400); RED CELL DISTRIBUTION WIDTH 15.1 % (11.0-15.5); WHITE BLOOD COUNT (AUTO) 9.2 K/uL (4.8-10.8)
[2021-08-12 15:19] LABS: CREATININE 0.8 mg/dL (0.5-1.5); POTASSIUM 3.6 mmol/L (3.5-5.1)
[2021-08-12 15:24] LABS: ALBUMIN 2.8 g/dL (3.5-5.0); BILIRUBIN,TOTAL 0.2 mg/dL (0.2-1.0); TOTAL PROTEIN, SERUM 6.7 g/dL (6.0-8.3)
[2021-08-12] MEDS ORDERED: ACETAMINOPHEN 325 MG TAB PO PRN (19:00)
[2021-08-12] MEDS ORDERED: LACTATED RINGERS 1000ML 1,000 ML IV SCH (19:00)
[2021-08-12] MEDS ORDERED: ALBUTEROL 0.083% 2.5 MG/3 ML INH IH PRN ×2 (19:00→19:30)
[2021-08-12] MEDS ORDERED: ONDANSETRON 4MG INJ IVP PRN (19:00)
[2021-08-12] MEDS ORDERED: DOCUSATE SODIUM 100 MG CAP PO PRN ×2 (19:00)
[2021-08-12] MEDS ORDERED: ACETAMINOPHEN 650 MG SUPPOSITORY RC PRN (19:00)
[2021-08-12] MEDS ORDERED: HYDRALAZINE 20MG/ML VIAL IV PRN (19:00)
[2021-08-12] MEDS ORDERED: LACTULOSE 20 GM/30 ML UDCUP PO PRN (19:00)
[2021-08-12] MEDS: INSULIN HUMULIN R 100 UNIT/ML 3ML SQ SCH (21:00)
[2021-08-12 21:09] LABS: HEMATOCRIT 22.5 % (36-48)
[2021-08-12 23:25] VITALS: BP 163/71
[2021-08-13 00:12] VITALS: BP 156/66
[2021-08-13] MEDS ORDERED: CEFTRIAXONE 2GM VIAL ONE (02:39)
[2021-08-13] MEDS ORDERED: CEFTRIAXONE 2GM VIAL IVP ONE (03:00)
[2021-08-13 04:12] VITALS: BP 125/57
[2021-08-13 04:28] LABS: CREATININE 0.7 mg/dL (0.5-1.5); MAGNESIUM 1.7 mg/dL (1.80-2.40); PHOSPHORUS 4.3 mg/dL (2.5-4.9)
[2021-08-13 04:44] LABS: HEMATOCRIT 22.6 % (36-48); MEAN CORPUSCULAR HEMOGLOBIN 27.7 pg (27.0-33.0); MEAN CORPUSCULAR VOLUME 89.3 fL (79-99); RED BLOOD CELL COUNT(AUTO) 2.53 MIL/uL (4.00-5.50); RED CELL DISTRIBUTION WIDTH 14.9 % (11.0-15.5); WHITE BLOOD COUNT (AUTO) 7.5 K/uL (4.8-10.8)
[2021-08-13 04:51] LABS: POTASSIUM 2.9 mmol/L (3.5-5.1)
[2021-08-13] MEDS ORDERED: POTASSIUM CHLORIDE 10% ELIXIR 20 MEQ/15 ML UDCUP PO PRN (05:00)
[2021-08-13] MEDS ORDERED: MAGNESIUM 2GM PREMIX 50ML 50 ML IV PRN (05:00)
[2021-08-13] MEDS ORDERED: LIDOCAINE HCL-MPF 1% 2ML VIAL IV PRN (05:00)
[2021-08-13] MEDS ORDERED: POTASSIUM CHLORIDE 20MEQ/100ML 100 ML IV PRN (05:00)
[2021-08-13] MEDS ORDERED: MAGNESIUM 2GM PREMIX 50ML 50 ML IV ONE (05:06)
[2021-08-13] MEDS: KCL 20 MEQ ERTAB PO PRN ×2 (06:20→11:54)
[2021-08-13] MEDS: INSULIN HUMULIN R 100 UNIT/ML 3ML SQ SCH ×4 (07:10→20:07)
[2021-08-13 08:00] VITALS: BP 143/62
[2021-08-13] MEDS: CLOPIDOGREL 75MG TAB PO SCH ×2 (09:00→12:00)
[2021-08-13] MEDS: POLYETHYLENE GLYCOL 3350 17 GM POWD.PACK PO SCH (09:00)
[2021-08-13] MEDS ORDERED: ENOXAPARIN SODIUM 30 MG/0.3 ML SQ SCH (09:00)
[2021-08-13 10:12] LABS: APPEARANCE,URINE CLEAR (CLEAR); BILIRUBIN,URINE NEGATIVE (NEGATIVE); COLOR,URINE YELLOW (YELLOW); GLUCOSE, URINE (UA) NEGATIVE (NEGATIVE); KETONES,URINE 5 mg/dL (NEGATIVE); LEUKOCYTE ESTERASE ,URINE TRACE (NEGATIVE); NITRATE,URINE NEGATIVE (NEGATIVE); OCCULT BLOOD,URINE NEGATIVE (NEGATIVE); PROTEIN,URINE NEGATIVE (NEGATIVE); UROBILINOGEN,URINE 0.2 mg/dL (0.2-1.0)
[2021-08-13 10:46] LABS: BACTERIA,URINE Few /HPF (None Seen); RBC,URINE 0-1 /HPF (0-1); SQUAMOUS EPITHELIAL CELL,UR Few /HPF (0-2); WBC,URINE 0-1 /HPF (0-1)
[2021-08-13] MEDS ORDERED: PHARMACY COMMUNICATION MISC SCH (11:00)
[2021-08-13 11:35] VITALS: BP 141/61
[2021-08-13] MEDS: IRON SUCROSE COMPLEX 100 MG/5 ML VIAL IVP SCH (11:53)
[2021-08-13 12:00] LABS: % IRON SATURATION 8.4 % (22-44)
[2021-08-13 15:53] LABS: CREATININE 0.7 mg/dL (0.5-1.5); POTASSIUM 4.1 mmol/L (3.5-5.1)
[2021-08-13 16:00] VITALS: BP 160/60
[2021-08-13] MEDS ORDERED: LACTATED RINGERS 1000ML 1,000 ML IV SCH (20:00)
[2021-08-13 20:12] VITALS: BP 152/67
[2021-08-13] MEDS: ATORVASTATIN 40 MG TABLET PO SCH (20:24)
[2021-08-13] MEDS: PANTOPRAZOLE 40 MG/VIAL IVP SCH (21:13)
[2021-08-14] VITALS (8 sets, daily range): BP systolic 127–162; BP diastolic 56–68
[2021-08-14 04:36] LABS: BASOPHILS % (AUTO) 0.5 % (0.0-5.0); EOSINOPHILS % (AUTO) 1.5 % (0.0-8.0); LYMPHOCYTES % (AUTO) 16.2 % (21.0-51.0); MEAN CORPUSCULAR HEMOGLOBIN 27.5 pg (27.0-33.0); MEAN CORPUSCULAR HGB CONC 30.9 g/dL (32.0-36.0); MEAN CORPUSCULAR VOLUME 89.1 fL (79-99); MONOCYTES % (AUTO) 9.3 % (3.0-13.0); NEUTROPHILS % (AUTO) 70.4 % (40.0-77.0); PLATELET COUNT (AUTO) 319 K/uL (130-400); RED BLOOD CELL COUNT(AUTO) 2.29 MIL/uL (4.00-5.50); RED CELL DISTRIBUTION WIDTH 15.3 % (11.0-15.5); WHITE BLOOD COUNT (AUTO) 8.2 K/uL (4.8-10.8)
[2021-08-14 04:54] LABS: HEMATOCRIT 20.4 % (36-48)
[2021-08-14 05:04] LABS: ALBUMIN 2.5 g/dL (3.5-5.0); BILIRUBIN,TOTAL 0.2 mg/dL (0.2-1.0); CREATININE 0.7 mg/dL (0.5-1.5); MAGNESIUM 1.9 mg/dL (1.80-2.40); PHOSPHORUS 4.1 mg/dL (2.5-4.9); POTASSIUM 3.6 mmol/L (3.5-5.1)
[2021-08-14] MEDS: INSULIN HUMULIN R 100 UNIT/ML 3ML SQ SCH ×4 (05:17→21:00)
[2021-08-14] MEDS: PANTOPRAZOLE 40 MG/VIAL IVP SCH ×2 (08:27→20:35)
[2021-08-14] MEDS: POLYETHYLENE GLYCOL 3350 17 GM POWD.PACK PO SCH (08:27)
[2021-08-14] MEDS: IRON SUCROSE COMPLEX 100 MG/5 ML VIAL IVP SCH (12:13)
[2021-08-14 13:42] LABS: HEMATOCRIT 22.2 % (36-48)
[2021-08-14 19:45] LABS: HEMATOCRIT 23.1 % (36-48)
[2021-08-14] MEDS: KCL 20 MEQ ERTAB PO PRN (20:35)
[2021-08-14] MEDS: ATORVASTATIN 40 MG TABLET PO SCH (20:35)
[2021-08-15 04:21] VITALS: BP 131/54
[2021-08-15 05:20] LABS: BASOPHILS % (AUTO) 0.3 % (0.0-5.0); EOSINOPHILS % (AUTO) 1.7 % (0.0-8.0); LYMPHOCYTES % (AUTO) 13.7 % (21.0-51.0); MEAN CORPUSCULAR HEMOGLOBIN 27.7 pg (27.0-33.0); MEAN CORPUSCULAR HGB CONC 31.3 g/dL (32.0-36.0); MEAN CORPUSCULAR VOLUME 88.5 fL (79-99); MONOCYTES % (AUTO) 8.7 % (3.0-13.0); NEUTROPHILS % (AUTO) 73.9 % (40.0-77.0); NUCLEATED RED BLOOD CELLS 0.2 % (0.0-0.19); PLATELET COUNT (AUTO) 291 K/uL (130-400); RED BLOOD CELL COUNT(AUTO) 2.35 MIL/uL (4.00-5.50); RED CELL DISTRIBUTION WIDTH 16.2 % (11.0-15.5); WHITE BLOOD COUNT (AUTO) 10.9 K/uL (4.8-10.8)
[2021-08-15 05:24] LABS: HEMATOCRIT 20.8 % (36-48)
[2021-08-15 05:38] LABS: ALBUMIN 2.5 g/dL (3.5-5.0); BILIRUBIN,TOTAL 0.2 mg/dL (0.2-1.0); CREATININE 0.7 mg/dL (0.5-1.5); MAGNESIUM 1.7 mg/dL (1.80-2.40); PHOSPHORUS 4.1 mg/dL (2.5-4.9); POTASSIUM 3.7 mmol/L (3.5-5.1); TOTAL PROTEIN, SERUM 5.8 g/dL (6.0-8.3)
[2021-08-15] MEDS: INSULIN HUMULIN R 100 UNIT/ML 3ML SQ SCH ×4 (06:37→21:00)
[2021-08-15 08:00] VITALS: BP 141/61
[2021-08-15] MEDS: POLYETHYLENE GLYCOL 3350 17 GM POWD.PACK PO SCH (09:43)
[2021-08-15] MEDS: PANTOPRAZOLE 40 MG/VIAL IVP SCH ×2 (09:43→20:26)
[2021-08-15] MEDS: IRON SUCROSE COMPLEX 100 MG/5 ML VIAL IVP SCH (10:44)
[2021-08-15 12:00] VITALS: BP 137/59
[2021-08-15 12:01] LABS: HEMATOCRIT 24.5 % (36-48)
[2021-08-15 16:00] VITALS: BP 137/61
[2021-08-15 16:45] LABS: HEMATOCRIT 24.9 % (36-48)
[2021-08-15 19:00] VITALS: BP 130/62
[2021-08-15] MEDS: ATORVASTATIN 40 MG TABLET PO SCH (20:26)
[2021-08-15 23:24] LABS: HEMATOCRIT 25.7 % (36-48)
[2021-08-16] VITALS: BP 134/65
[2021-08-16 04:00] VITALS: BP 129/62
[2021-08-16 04:21] LABS: BASOPHILS % (AUTO) 0.4 % (0.0-5.0); EOSINOPHILS % (AUTO) 2.1 % (0.0-8.0); HEMATOCRIT 22.8 % (36-48); LYMPHOCYTES % (AUTO) 13.2 % (21.0-51.0); MEAN CORPUSCULAR HEMOGLOBIN 28.4 pg (27.0-33.0); MEAN CORPUSCULAR HGB CONC 32.5 g/dL (32.0-36.0); MEAN CORPUSCULAR VOLUME 87.4 fL (79-99); MONOCYTES % (AUTO) 9.9 % (3.0-13.0); NEUTROPHILS % (AUTO) 72.6 % (40.0-77.0); PLATELET COUNT (AUTO) 291 K/uL (130-400); RED BLOOD CELL COUNT(AUTO) 2.61 MIL/uL (4.00-5.50); RED CELL DISTRIBUTION WIDTH 16.7 % (11.0-15.5); WHITE BLOOD COUNT (AUTO) 9.5 K/uL (4.8-10.8)
[2021-08-16 04:44] LABS: ALBUMIN 2.6 g/dL (3.5-5.0); BILIRUBIN,TOTAL 0.2 mg/dL (0.2-1.0); CREATININE 0.7 mg/dL (0.5-1.5); POTASSIUM 3.7 mmol/L (3.5-5.1); TOTAL PROTEIN, SERUM 6.1 g/dL (6.0-8.3)
[2021-08-16] MEDS: INSULIN HUMULIN R 100 UNIT/ML 3ML SQ SCH ×4 (06:02→19:56)
[2021-08-16 08:00] VITALS: BP 135/67
[2021-08-16] MEDS: POLYETHYLENE GLYCOL 3350 17 GM POWD.PACK PO SCH ×2 (08:07→09:00)
[2021-08-16] MEDS: PANTOPRAZOLE 40 MG/VIAL IVP SCH ×2 (08:07→19:51)
[2021-08-16] MEDS: IRON SUCROSE COMPLEX 100 MG/5 ML VIAL IVP SCH (10:45)
[2021-08-16 11:50] VITALS: BP 143/60
[2021-08-16 15:56] VITALS: BP 137/61
[2021-08-16 19:00] VITALS: BP 147/58
[2021-08-16] MEDS: ATORVASTATIN 40 MG TABLET PO SCH (19:51)
[2021-08-17] VITALS (22 sets, daily range): BP systolic 95–157; BP diastolic 45–66
[2021-08-17 04:23] LABS: BASOPHILS % (AUTO) 0.6 % (0.0-5.0); HEMATOCRIT 23.8 % (36-48); LYMPHOCYTES % (AUTO) 14.8 % (21.0-51.0); MEAN CORPUSCULAR HEMOGLOBIN 27.4 pg (27.0-33.0); MEAN CORPUSCULAR HGB CONC 30.7 g/dL (32.0-36.0); MEAN CORPUSCULAR VOLUME 89.5 fL (79-99); MONOCYTES % (AUTO) 9.2 % (3.0-13.0); NEUTROPHILS % (AUTO) 71.9 % (40.0-77.0); PLATELET COUNT (AUTO) 278 K/uL (130-400); RED BLOOD CELL COUNT(AUTO) 2.66 MIL/uL (4.00-5.50); RED CELL DISTRIBUTION WIDTH 17.2 % (11.0-15.5); WHITE BLOOD COUNT (AUTO) 8.5 K/uL (4.8-10.8)
[2021-08-17 04:39] LABS: ALBUMIN 2.6 g/dL (3.5-5.0); BILIRUBIN,TOTAL 0.2 mg/dL (0.2-1.0); CREATININE 0.8 mg/dL (0.5-1.5); POTASSIUM 3.6 mmol/L (3.5-5.1); TOTAL PROTEIN, SERUM 6.1 g/dL (6.0-8.3)
[2021-08-17] MEDS: INSULIN HUMULIN R 100 UNIT/ML 3ML SQ SCH ×4 (05:42→20:16)
[2021-08-17] MEDS ORDERED: PROPOFOL 10 MG/ML 20ML VIAL IV ONE (07:53)
[2021-08-17] MEDS: PANTOPRAZOLE 40 MG/VIAL IVP SCH ×2 (09:00→20:16)
[2021-08-17] MEDS: POLYETHYLENE GLYCOL 3350 17 GM POWD.PACK PO SCH (09:00)
[2021-08-17] MEDS: ATORVASTATIN 40 MG TABLET PO SCH (20:16)
[2021-08-18] VITALS: BP 153/67
[2021-08-18 04:00] VITALS: BP 162/62
[2021-08-18 04:58] LABS: HEMATOCRIT 23.3 % (36-48); MEAN CORPUSCULAR HGB CONC 31.3 g/dL (32.0-36.0); MEAN CORPUSCULAR VOLUME 92.5 fL (79-99); RED BLOOD CELL COUNT(AUTO) 2.52 MIL/uL (4.00-5.50); RED CELL DISTRIBUTION WIDTH 17.3 % (11.0-15.5); WHITE BLOOD COUNT (AUTO) 8.1 K/uL (4.8-10.8)
[2021-08-18] MEDS: INSULIN HUMULIN R 100 UNIT/ML 3ML SQ SCH ×3 (05:10→16:30)
[2021-08-18 05:17] LABS: CREATININE 0.7 mg/dL (0.5-1.5); POTASSIUM 3.4 mmol/L (3.5-5.1)
[2021-08-18 07:52] VITALS: BP 151/62
[2021-08-18] MEDS: PANTOPRAZOLE 40 MG/VIAL IVP SCH (08:03)
[2021-08-18] MEDS: POLYETHYLENE GLYCOL 3350 17 GM POWD.PACK PO SCH (08:03)
[2021-08-18] MEDS: KCL 20 MEQ ERTAB PO PRN ×2 (08:04→17:53)
[2021-08-18 11:26] VITALS: BP 150/61
[2021-08-18 16:00] VITALS: BP 151/117
== END 2021-08-18 19:55 | disposition home or self-care (01) | DRG 377 ==
LOC: EDH 14:14 → UNDOADMOB 18:46 → INTOOBSV 18:46 → EDHIP 18:46 → OBSVTOIN 18:46 → 4DH 23:21 → EDHIP 23:21
PROVIDERS: ADMIT Internal Medicine Pulmonary Disease; ATTEND Internal Medicine Pulmonary Disease
PROC: 30233N1 Transfusion of Nonautologous Red Blood Cells into Peripheral Vein, Percutaneous Approach (ICD-10-PCS; principal; 2021-08-12)
PROC: 0DJ08ZZ Inspection of Upper Intestinal Tract, Via Natural or Artificial Opening Endoscopic (ICD-10-PCS; 2021-08-17)
DX: K92.2 Gastrointestinal hemorrhage, unspecified (principal); J18.9 Pneumonia, unspecified organism; D62 Acute posthemorrhagic anemia; C78.00 Secondary malignant neoplasm of unspecified lung; I25.10 Atherosclerotic heart disease of native coronary artery without angina pectoris; K80.80 Other cholelithiasis without obstruction; E11.65 Type 2 diabetes mellitus with hyperglycemia; I10 Essential (primary) hypertension; D72.810 Lymphocytopenia; E83.51 Hypocalcemia; E87.6 Hypokalemia; K44.9 Diaphragmatic hernia without obstruction or gangrene; K21.9 Gastro-esophageal reflux disease without esophagitis; E78.00 Pure hypercholesterolemia, unspecified; E78.5 Hyperlipidemia, unspecified; K21.00 Gastro-esophageal reflux disease with esophagitis, without bleeding; Z79.84 Long term (current) use of oral hypoglycemic drugs; Z90.710 Acquired absence of both cervix and uterus
CPT/HCPCS: 36415; 36430; 44360; 78278; 80048; 80053; 81001; 82270; 82948; 83540; 83550; 83735; 83883; 84100; 84484; 85014; 85018; 85025; 85027; 86334; 86850; 86880; 86900; 86901; 86923; 93005; A4606; A9512; C9113; G0378; J0696; J1756; J2704; J3475; J3480; J3490; J7030; J7120; P9016